=== PATIENT | female | born 1955 | race Caucasian/White ===

== ENCOUNTER → 2018-06-29 | Outpatient (CLI) | payer OTHER ==
--- NOTE | 2018-06-29 09:06 | RAD ---
EXAM DESCRIPTION: Pelvis CLINICAL HISTORY: 63 years Female, M25.551 COMPARISON: None. FINDINGS: Single AP view of the pelvis shows no acute fracture or malalignment. The hip and sacroiliac joint spaces are well maintained. The pubic symphysis is anatomically aligned. Moderate amount stool and gas in the visualized portions of the colon. IMPRESSION: Moderate amount of colonic stool and gas without additional pelvic abnormality. Electronically signed by: Slavador Chandler MD 06/29/2018 8:59 AM CDT
--- NOTE | 2018-06-29 09:06 | RAD ---
EXAM DESCRIPTION: Hip,Right 2 Views CLINICAL HISTORY: 63 years Female, M25.551 COMPARISON: None. FINDINGS: Two views of the right hip show no acute fracture or malalignment. No focal bone lesion or right hip joint space narrowing. No soft tissue abnormality. IMPRESSION: Negative exam. Electronically signed by: Salvador Chandler MD 06/29/2018 9:00 AM CDT
== END ==
LOC: RAD 08:12
PROVIDERS: ATTEND Orthopaedic Surgery
DX: M25.551 Pain in right hip (principal); K59.01 Slow transit constipation

== ENCOUNTER → 2018-09-21 | Outpatient (CLI) | payer OTHER ==
--- NOTE | 2018-09-21 11:22 | MRI ---
Study: MRI Arthrogram of the Right Hip. Indication: ACETABULAR LABRUM TEAR Technique: Multiplanar, multi sequence MRI of the right hip was obtained after intra-articular injection of contrast. Please see dedicated procedural report for additional details. Comparison: None. Findings: Full-thickness contrast-filled tear at the base of the anterior superior right hip labrum at the 2:00 to 1:00 position with delamination of the tearing laterally extending superiorly to the 12:00 position towards the free edge. No significant labral detachment. There is loss of normal sphericity anterior superior margin of the femoral head neck junction. Labral over coverage noted superiorly. No acute fracture or osteonecrosis. Grade 2 chondral thinning throughout the right hip joint. Minimal subcortical cystic change posterior inferior margin of acetabulum. Mild right greater trochanter bursal edema. Tendinosis right hamstring tendon origin as well as right gluteus minimus/medius tendon insertions. Mild pubic symphysis osteoarthritis. Impression: Anterior superior right hip labral tearing extending to the superior labrum as well. 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 Grade 2 chondrosis throughout right hip joint. Additional findings as above. Electronically signed by: Bala Walton MD 09/21/2018 11:20 AM CDT
--- NOTE | 2018-09-21 16:39 | RAD ---
EXAM DESCRIPTION: ARTHROGRAM HIP, RIGHT: Radio-Fluoroscopy. CLINICAL HISTORY: ACETABULAR LABRUM TEAR COMPARISON: MRI scan right hip without contrast 07/20/2018. TECHNIQUE: The procedure was explained to the patient with risks and benefits. The patient understood and gave verbal and written consent. 5 cc of nonionic contrast in one syringe; a contrast mixture of 10 cc nonionic contrast, 10 cc of sterile normal saline, and 0.1 cc of gadolinium was prepared in a second syringe. The patient is supine on the fluoroscopic table. Right hip in internal rotation. The right hip joint was localized by fluoroscopy. The skin overlying the base of the right femoral neck was marked and prepped with Betadine and sterile drape. Anesthetic was given sub-cutaneously and intradermally. Under fluoroscopic visualization, a 22-gauge spinal needle was introduced into the junction of the right femoral neck and head, A test injection of 2 cc of the contrast only was performed into the inferior joint capsule. An additional 11 cc of the contrast mixture was injected. The patient performed active exercise. The patient was transferred to the high field MRI suite for multiplanar, multi-sequence scanning. There were no immediate complications. Single frontal AP image of the right hip was recorded. Fluoroscopy time was 1.1 minute . DAP 5.12 Gy-cm2. IMPRESSION: Successful, fluoroscopic-guided injection of sterile normal saline, non-ionic contrast, and gadolinium into right hip joint, followed by MRI scan. Permanent images from this procedure are maintained in the patient's medical record. Electronically signed by: Myles Moffett MD 09/21/2018 4:37 PM CDT
--- NOTE | 2018-09-22 08:50 | MRI ---
EXAM DESCRIPTION: Lumbar Spine w/o Contrast : Magnetic Resonance Imaging. CLINICAL HISTORY: RADICULOPATHY COMPARISON: Right hip arthrogram and MRI post arthrogram on the same visit. Radiographs of the lumbar spine February 2018. TECHNIQUE: Multiplanar, multiple standard sequences, non contrast MRI, lumbar spine. FINDINGS: L5-S1: Disc space is completely imaged on axial T2 series 501, image 3. Normal signal in the disc. Minimal loss of disc space. Posterior elements unremarkable. Canal and foramina are patent. L4-L5: Minimal disc space loss. Minimal disc desiccation signal. Right-sided endplate reactive changes with Schmorl's nodes in the superior endplate. No disc bulging. Minimal effusion in the left facet and thickening of the flavum ligament. Bilateral foramina are patent. L3-L4: Normal signal in the disc and disc space preserved. Facets are negative. Minimal thickening of the posterior ligaments. Canal and foramina are patent. L2-L3: Normal signal in the disc and disc space preserved with no bulging. Posterior elements unremarkable. Canal and foramina are patent. Fluid signal in the exiting right L2 nerve root. L1-L2: Mild disc desiccation. Anterior endplate reactive changes in minimal bulge of the disc. No posterior bulging. Posterior elements are unremarkable. Canal and foramina are patent. Hyperintense T2 signal in the inferior endplate of L1 is hypointense on T1 and hyperintense on T2. Most likely a Schmorl's node. Conus terminates at L1. T12-L1: Normal signal in the disc with disc space preserved. Posterior elements unremarkable. Canal and foramina are patent. Heterogeneous marrow signal. In the L5 vertebral body, L3 vertebral body, L2 vertebral body, L1 vertebral body, and T12 vertebral body, are hyperintense regions on T1 and T2 sequences not connected with endplate with predominantly lack of signal on inversion recovery sequences. These are most likely hemangiomas. Atypical larger hemangioma at L3 vertebral body with hyperintense signal also on inversion recovery sequence. No significant scoliosis. Paravertebral soft tissues negative.. Otherwise normal marrow signal in the remaining vertebral bodies and the posterior elements. Vertebral bodies are not compressed at any level. IMPRESSION: 1. Multiple levels of disc desiccation of the disc but no significant disc space loss. Spondylosis and Schmorl's nodes at several levels. Heterogeneous marrow signal with multiple hemangiomas. 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 2. No compression type vertebral body fractures. No canal or foraminal stenosis. Electronically signed by: Myles Moffett MD 09/22/2018 8:48 AM CDT
== END ==
LOC: MRI 07:46
PROVIDERS: ATTEND Orthopaedic Surgery
DX: M24.151 Other articular cartilage disorders, right hip (principal); S73.191A Other sprain of right hip, initial encounter; M51.16 Intervertebral disc disorders with radiculopathy, lumbar region; M51.46 Schmorl's nodes, lumbar region; M47.26 Other spondylosis with radiculopathy, lumbar region; M71.38 Other bursal cyst, other site

== ENCOUNTER → 2019-04-05 | Outpatient (CLI) | payer OTHER ==
--- NOTE | 2019-04-05 11:48 | RAD ---
EXAM DESCRIPTION: Elbow,Right 3 Views CLINICAL HISTORY: 64 years Female, PAIN IN RIGHT ELBOW COMPARISON: None. TECHNIQUE: 3 view radiographs of the right elbow. IMPRESSION: No acute displaced fracture. No dislocation. Anterior and posterior fat pads are non-displaced. Small enthesophyte at the triceps tendon insertion of the olecranon. Unremarkable soft tissues. Electronically signed by: Jose A Mitchell MD 04/05/2019 11:47 AM [facility]
--- NOTE | 2019-04-05 11:50 | RAD ---
4 radiograph right shoulder Indication: PAIN IN RIGHT SHOULDER Comparison: None. Impression: A.C. and glenohumeral joint alignment normal without acute fracture or dislocation. No advanced osteoarthritis. Electronically signed by: Bala Walton MD 04/05/2019 11:48 AM [facility]
== END ==
LOC: RAD 08:05
PROVIDERS: ATTEND Orthopaedic Surgery
DX: M25.511 Pain in right shoulder (principal); M25.521 Pain in right elbow; M77.9 Enthesopathy, unspecified

== ENCOUNTER → 2019-12-23 | Outpatient (CLI) | payer OTHER | LOC: GMA MATASK 10:51 | PROVIDERS: ATTEND Family Medicine | DX: Z13.6 Encounter for screening for cardiovascular disorders (principal) ==